=== PATIENT | female | born 1960 | race Caucasian/White ===

== ENCOUNTER 2022-03-26 15:10 | Emergency (ER) | payer OTHER ==
[~2022-03-26] VITALS: Ht 160 cm; Wt 90.7 kg
[2022-03-26] MEDS ORDERED: IV NORMAL SALINE 1000 ML BAG IV ONE (15:45)
[2022-03-26] MEDS ORDERED: METFORMIN PO (15:56)
[2022-03-26] MEDS ORDERED: [UNRECOGNIZED DRUG - OTHER] PO (15:56)
[2022-03-26] MEDS ORDERED: PRADAXA (16:06)
[2022-03-26] MEDS ORDERED: ABILIFY (16:06)
[2022-03-26] MEDS ORDERED: WELLBUTRIN (16:06)
[2022-03-26 16:07] LABS: HEMATOCRIT 39.3 % (31.2-41.9); MEAN CORPUSCULAR VOLUME 93.8 fL (75.5-95.3); PLATELET COUNT (AUTO) 319 K/uL (179-408)
--- NOTE | 2022-03-26 16:07 | NUR ---
DR STACK AT BEDSIDE FOR EVALUATION. PT UNABLE TO RECALL ALL MEDS AND DOSAGES AT THIS TIME.
[2022-03-26 16:13] LABS: CARBON DIOXIDE 29 mmol/L (21-32); CHLORIDE 102 mmol/L (98-107); CREATININE 0.9 mg/dL (0.6-1.3); GLUCOSE 138 mg/dL (74-106); POTASSIUM 4.2 mmol/L (3.5-5.1); UREA NITROGEN, BLOOD 15 mg/dL (7-18)
[2022-03-26 16:21] LABS: ALANINE AMINOTRANSFERASE 27 U/L (14-59); ALKALINE PHOSPHATASE 84 U/L (50-136); ASPARTATE AMINOTRANSFERASE 12 U/L (15-37); BILIRUBIN,DIRECT 0.1 mg/dL (0.0-0.2); BILIRUBIN,TOTAL 0.3 mg/dL (0.2-1.0); TOTAL PROTEIN, SERUM 7.2 g/dL (6.4-8.2)
--- NOTE | 2022-03-26 17:48 | NUR ---
Patient used the facility the 2nd time and calling nurse to bedside for many reasons including to get her lipstick from her bag which she has at bedside.
[2022-03-26 17:50] LABS: *BILIRUBIN,URIN NEGATIVE (NEGATIVE); *BLOOD, URINE NEGATIVE (NEGATIVE); *CLARITY,URINE CLEAR (CLEAR); *COLOR,URINE LIGHT YELLOW (YELLOW); *KETONES,URINE NEGATIVE (NEGATIVE); *UROBILINOGEN,URINE 0.2 E.U./dl (NORMAL); LEUKOCYTE ESTERASE ,URINE NEGATIVE (NEGATIVE); NITRITE, URINE NEGATIVE (NEGATIVE); PH,URINE 5.5 (5.0-8.0); UGLUCOSE NEGATIVE (NEGATIVE)
--- NOTE | 2022-03-26 18:55 | NUR ---
DCD instructions given to pt. who verbalized undertanding. Pt. will be peanut picker by her room-mate and she will call and arrange it herself.
== END 2022-03-26 18:55 | disposition home or self-care (01) ==
LOC: ER 15:10
DX: R55 Syncope and collapse (principal); E86.0 Dehydration; Z86.711 Personal history of pulmonary embolism; Z79.02 Long term (current) use of antithrombotics/antiplatelets; Z79.84 Long term (current) use of oral hypoglycemic drugs; E11.9 Type 2 diabetes mellitus without complications; E03.9 Hypothyroidism, unspecified; E78.5 Hyperlipidemia, unspecified; E66.9 Obesity, unspecified; Z68.35 Body mass index [BMI] 35.0-35.9, adult; Z87.440 Personal history of urinary (tract) infections; F32.A Depression, unspecified
CPT/HCPCS: 36415; 71045; 84443; 84484; 85025; 93005; A4663; J7040